=== PATIENT | male | born 1965 | race Caucasian/White ===

== ENCOUNTER 2019-11-20 10:42 | Emergency (ER) | payer OTHER ==
[~2019-11-20] VITALS: Ht 185.4 cm; Wt 95.7 kg
--- NOTE | 2019-11-20 10:54 | ED Back Pain ---
General Stated Complaint: BACK PAIN History of Present Illness Date Seen by Provider: Nov 20, 2019 Time Seen by Provider: 10:48 Initial Comments 54-year-old male upon awakening 2 days ago he had some pain in the right SI area no fall or injury has had a history of episodic low back pain but has never had surgery at times in the past he has had some symptoms down a leg but does not currently no incontinence seems to described severe muscle spasms Location: Paraspinous Muscles (right lumbar) Allergies and Home Medications Allergies Coded Allergies: No Known Drug Allergies (Unverified , 11/20/19) Patient Home Medication List Home Medication List Reviewed: Yes Review of Systems Constitutional: no symptoms reported EENTM: no symptoms reported Respiratory: no symptoms reported Cardiovascular: no symptoms reported Gastrointestinal: no symptoms reported Genitourinary: no symptoms reported, other (remote hx bladder ca long ago disease free no urologic sx's) Musculoskeletal: other (lumbar pain and stiffness with episodic severe right sided muscle spasm ) Skin: no symptoms reported Psychiatric/Neurological: No Symptoms Reported Physical Exam Vital Signs Vital Signs - First Documented 11/20/19 10:59 Temp 35.7 Pulse 78 Resp 16 B/P (MAP) 139/84 (102) Pulse Ox 98 O2 Delivery Room Air Capillary Refill : Height, Weight, BMI Height: '" Weight: lbs. oz. kg; BMI Method: General Appearance: Mild Distress HEENT: PERRL/EOMI Neck: Supple Cardiovascular: Regular Rate, Rhythm Respiratory: Lungs Clear Gastrointestinal: Normal Bowel Sounds, Non Tender, Soft Back: Other (lumbar straightening muscle spasm on the right straight leg raising causes back pain in both sides left greater neurologically intact with strong plantar and dorsiflexion both ankles muscle tone normal) Extremity: Normal Inspection, Non Tender Neurologic/Psychiatric: Alert, Oriented x3, No Motor/Sensory Deficits, Normal Mood/Affect, box liner II-XII Norm as Tested Progress/Results/Core Measures Results/Orders My Orders Orders - MATILDA CONTRERAS MD Ketorolac Injection (Toradol Injection) (11/20/19 11:15) Orphenadrine Inj (Ed Only) (Norflex Inje (11/20/19 11:15) Ct Lumbar Spine Wo (11/20/19 11:17) Medications Given in ED Current Medications Medications Dose Ordered Sig/Abebe Route Start Time Stop Time Status Last Admin Dose Admin Ketorolac Tromethamine 60 mg ONCE ONCE IM 11/20/19 11:15 11/20/19 11:16 DC 11/20/19 11:36 60 MG Orphenadrine Citrate 60 mg ONCE ONCE IM 11/20/19 11:15 11/20/19 11:16 DC 11/20/19 11:36 60 MG Vital Signs/I&O 11/20/19 10:59 Temp 35.7 Pulse 78 Resp 16 B/P (MAP) 139/84 (102) Pulse Ox 98 O2 Delivery Room Air Progress Progress Note : Progress Note CT lumbar spine - degenerative changes present but no evidence of more serious pathology Departure Impression Primary Impression: Lumbar sprain Qualified Codes: S33.5XXA - Sprain of ligaments of lumbar spine, initial encounter Disposition: HOME, SELF-CARE Condition: Stable Departure-Patient Inst. Decision time for Depature: 12:02 Patient Instructions: Lumbar Muscle Strain (DC) Scripts Hydrocodone/Acetaminophen (Hydrocodone-Acetamin 5-325 mg) 1 Each Tablet 1 EACH PO Q4H for Pain, #16 TAB Prov: MATILDA CONTRERAS MD 11/20/19 Carisoprodol (Soma) 350 Mg Tablet 350 MG PO BID PRN for 5 Days, #15 TAB Prov: MATILDA CONTRERAS MD 11/20/19 Naproxen (Naprosyn) 500 Mg Tablet 500 MG PO BID for 7 Days, #20 TAB Prov: MATILDA CONTRERAS MD 11/20/19 MATILDA CONTRERAS MD Nov 20, 2019 10:54
[2019-11-20] MEDS ORDERED: KETOROLAC 60 MG/2 ML VIAL IM ONE (11:15)
[2019-11-20] MEDS ORDERED: ORPHENADRINE 60 MG/2 ML (NORFLEX) AMP (ED ONLY) IM ONE (11:15)
--- NOTE | 2019-11-20 11:49 | Diagnostic Imaging Report ---
PROCEDURE: CT lumbar spine without contrast. TECHNIQUE: Multiple contiguous axial images were obtained through the lumbar spine without the use of intravenous contrast. Sagittal and coronal reformations were then performed. Auto Exposure Controls were utilized during the CT exam to meet ALARA standards for radiation dose reduction. INDICATION: Low back pain. No comparison available. FINDINGS: Alignment of the lumbar spine is within normal limits. The vertebral body heights are maintained. The facets appear normally aligned. There are no findings of pars defect. There is no acute lumbar fracture or evidence of a suspicious marrow replacing lesion. There are multilevel endplate changes present which are most advanced at L5-S1. By CT imaging, there are no findings that suggest significant lower canal stenosis. L1-L2 unremarkable. At L2-L3, there is minimal facet hypertrophy with no significant stenosis demonstrated. At L3-L4, mild facet hypertrophy and ligamentous thickening appear to be some slight disc bulging with mild narrowing of the central canal and lateral recesses. There is minimal narrowing of the neural foramen. L4-L5 demonstrates diffuse disc bulging and more advanced facet arthropathy and ligamentous thickening. There is mild narrowing of the central canal but moderate narrowing of the lateral recesses. There is [id number] narrowing of both neural foramen. L5-S1 demonstrates endplate spurring and facet arthropathy. There does not appear to be significant central canal or lateral recess stenosis. There is mild left and [id number] right foraminal stenosis. The paraspinal soft tissues appear unremarkable. The aorta is normal in caliber. There are small non-pathologically enlarged retroperitoneal lymph nodes. The kidneys appear nonobstructed. There is a retroaortic left renal vein. IMPRESSION: 1. Normal height and alignment of lumbar spine without acute or suspicious osseous abnormality. 2. Most advanced disc space height loss and degenerative endplate changes at L5-S1. Most advanced facet arthropathy at L4-L5. 3. By CT imaging, there are no findings to suggest high-grade stenosis. If clinically indicated, follow-up MRI could be considered to better assess for disc herniations. Dictated by: Dictated on workstation # [id number]
[2019-11-20] MEDS ORDERED: HYDR-3812 PO (12:05)
[2019-11-20] MEDS ORDERED: NAPR-1071 PO (12:05)
[2019-11-20] MEDS ORDERED: CARI350T PO (12:05)
[2019-11-20 12:21] VITALS: BP 139/84
== END 2019-11-20 12:16 | disposition home or self-care (01) ==
LOC: ER FS 10:44
DX: S33.5XXA Sprain of ligaments of lumbar spine, initial encounter (principal); X58.XXXA Exposure to other specified factors, initial encounter
CPT/HCPCS: 72131